=== PATIENT | female | born 1970 | race Caucasian/White ===

== ENCOUNTER 2018-04-21 14:19 | Outpatient (CLI) | payer BC ==
--- NOTE | 2018-04-21 19:40 | XRAY Report ---
Reason: FOOT PAIN,LEFT Procedure Date: 04/21/2018 Accession Number: [id number] / [id number] Procedure: XR - Foot 3 View LT CPT Code: FULL RESULT: EXAM: LEFT FOOT RADIOGRAPHY EXAM DATE: 04/21/2018 02:55 PM. CLINICAL HISTORY: FOOT PAIN,LEFT. COMPARISON: None. TECHNIQUE: 3 views. FINDINGS: Bones: Normal. No fractures or bone lesions. Joints: Normal. No subluxations. Soft Tissues: Normal. No soft tissue swelling. IMPRESSION: Normal foot radiography. RADIA
== END 2018-04-21 14:20 | disposition home or self-care (01) ==
LOC: DI 14:19
PROVIDERS: ATTEND Family Medicine
DX: M79.672 Pain in left foot (principal)

== ENCOUNTER 2018-07-29 13:47 | Outpatient (CLI) | payer BC | END 2018-07-29 13:48 | disposition home or self-care (01) | LOC: LAB.F 13:47 | PROVIDERS: ATTEND Registered Nurse | DX: E03.9 Hypothyroidism, unspecified (principal) | CPT/HCPCS: 36415; 84443 ==

== ENCOUNTER 2018-08-29 08:00 | Outpatient (CLI) | payer BC | END 2018-08-29 23:59 | disposition home or self-care (01) | LOC: LAB.R 08:00 | PROVIDERS: ATTEND Physician Assistant Medical | DX: R30.0 Dysuria (principal) | CPT/HCPCS: 87086 ==

== ENCOUNTER 2019-03-24 13:10 | Day surgery (SDC) | payer BC ==
[2019-03-24 13:38] LABS: BASOPHILS # (AUTO) 0.1 10^3/uL (0.0-0.1); BASOPHILS % (AUTO) 0.3 %; EOSINOPHILS % (AUTO) 0.1 %; HGB - HEMOGLOBIN 12.8 g/dL (12.0-16.0); LYMPHOCYTES # (AUTO) 0.7 10^3/uL (1.5-3.5); LYMPHOCYTES % (AUTO) 4.9 %; MEAN CORPUSCULAR HEMOGLOBIN 30.5 pg (27.0-31.0); MEAN CORPUSCULAR HGB CONC 33.4 g/dL (32.0-36.0); MEAN CORPUSCULAR VOLUME 91.4 fL (81.0-99.0); MEAN PLATELET VOLUME 10.3 fL (7.9-10.8); MONOCYTES % (AUTO) 7.2 %; NEUTROPHILS # (AUTO) 12.5 10^3/uL (1.5-6.6); NEUTROPHILS % (AUTO) 86.8 %; PLT - PLATELET COUNT 182 10^3/uL (130-450); RED BLOOD COUNT 4.19 10^6/uL (4.20-5.40); RED CELL DISTRIBUTION WIDTH 12.1 % (12.0-15.0); WHITE BLOOD COUNT 14.4 x10^3/uL (4.8-10.8)
[2019-03-24 13:51] LABS: ALBUMIN 3.8 g/dL (3.2-5.5); ALBUMIN/GLOBULIN RATIO 1.1 (1.0-2.2); BILIRUBIN,TOTAL 1.5 mg/dL (0.2-1.0); CALCIUM 8.6 mg/dL (8.5-10.3); CREATININE 0.5 mg/dL (0.4-1.0); TOTAL PROTEIN 7.4 g/dL (6.7-8.2)
[2019-03-24] MEDS ORDERED: ONDANSETRON 4 MG/2 ML VIAL IVP STA (13:58)
[2019-03-24] MEDS ORDERED: SODIUM CHLORIDE 0.9% 1,000 ML IV ONE (13:58)
--- NOTE | 2019-03-24 14:00 | ED Physician Documentation ---
History of Present Illness - Stated complaint Stated Complaint: ABD PX N/V - Chief complaint Chief Complaint: Abd Pain - History obtained from History obtained from: Patient, Family - History of Present Illness Timing: How many days ago (2) Pain level max: 8 Pain level now: 7 - Additonal information Additional information: 48-year-old female is 3 days status post a left elbow surgery for a tendon repair. She states that the pain began yesterday. She states she had not had a bowel movement since surgery, so she took MiraLAX and had a bowel movement. Pain is increasing today. She had been taking hydrocodone but stopped this last night. She states the pain is worse with palpation and movement. Better with rest. Has had nausea and vomiting today. Last meal was last night. Review of Systems Ten Systems: 10 systems reviewed and negative Constitutional: denies: Fever, Chills Ears: denies: Ear pain Nose: denies: Rhinorrhea / runny nose, Congestion Throat: denies: Sore throat Cardiac: denies: Chest pain / pressure Respiratory: denies: Cough GI: reports: Nausea, Vomiting. denies: Diarrhea Skin: denies: Rash Musculoskeletal: denies: Neck pain, Back pain Neurologic: denies: Headache PD PAST MEDICAL HISTORY - Past Medical History Past Medical History: No - Past Surgical History Past Surgical History: Yes Ortho: Other (Tendon repair left elbow) /[employer]: Endometrial ablation - Allergies Allergies/Adverse Reactions: Allergies Allergy/AdvReac Type Severity Reaction Status Date / Time No Known Drug Allergies Allergy Verified 03/24/19 13:13 - Living Situation Living Situation: reports: With family Living Arrangement: reports: At home - Family History Family history: reports: Non contributory - Immunizations Immunizations are current?: Yes PD ED PE NORMAL - Vitals Vital signs reviewed: Yes - General General: Alert and oriented X 3, No acute distress, Well developed/nourished - HEENT HEENT: PERRL, Moist mucous membranes - Neck Neck: Supple, no meningeal sign - Cardiac Cardiac: RRR, Strong equal pulses - Respiratory Respiratory: No respiratory distress, Clear bilaterally - Abdomen Abdomen: Soft, Non distended, Other (Tender to palpation right lower quadrant McBurney's point. Positive Rovsing. Negative psoas. Positive obturator) - Back Back: No CVA TTP, No spinal TTP - Derm Derm: Warm and dry - Extremities Extremities: No edema, Other (Left arm is in a sling and splint) - Neuro Neuro: Alert and oriented X 3 - Psych Psych: Normal mood, Normal affect Results - Vitals Vitals: Vital Signs - 24 hr 03/24/19 13:14 Temperature 37.0 C Heart Rate 89 Respiratory 16 Rate Blood Pressure 115/68 O2 Saturation 96 Oxygen O2 Source Room air - Labs Labs: Laboratory Tests 03/24/19 03/24/19 03/24/19 13:32 13:32 14:03 WBC 14.4 H RBC 4.19 L Hgb 12.8 Hct 38.3 MCV 91.4 MCH 30.5 MCHC 33.4 RDW 12.1 Plt Count 182 MPV 10.3 Neut # (Auto) 12.5 H Lymph # (Auto) 0.7 L [place] # (Auto) 1.0 Eos # (Auto) 0.0 Baso # (Auto) 0.1 Absolute Nucleated RBC 0.00 Nucleated RBC % 0.0 Sodium 137 Potassium 3.6 Chloride 102 Carbon Dioxide 23 Anion Gap 12.0 BUN 8 Creatinine 0.5 Estimated GFR (MDRD) 132 Glucose 118 H Calcium 8.6 Total Bilirubin 1.5 H AST 51 H ALT 62 H Alkaline Phosphatase 48 Total Protein 7.4 Albumin 3.8 Globulin 3.6 Albumin/Globulin Ratio 1.1 Lipase 24 Urine Color YELLOW Urine Clarity CLEAR Urine pH 6.0 Ur Specific [place] <=1.005 Urine Protein NEGATIVE Urine Glucose (UA) NEGATIVE Urine Ketones 15 H Urine Occult Blood NEGATIVE Urine Nitrite NEGATIVE Urine Bilirubin NEGATIVE Urine Urobilinogen 0.2 (NORMAL) Ur Leukocyte Esterase NEGATIVE Ur Microscopic Review NOT INDICATED Urine Culture Comments NOT INDICATED Urine HCG, Qual 03/24/19 14:03 WBC RBC Hgb Hct MCV MCH MCHC RDW Plt Count MPV Neut # (Auto) Lymph # (Auto) [place] # (Auto) Eos # (Auto) Baso # (Auto) Absolute Nucleated RBC Nucleated RBC % Sodium Potassium Chloride Carbon Dioxide Anion Gap BUN Creatinine Estimated GFR (MDRD) Glucose Calcium Total Bilirubin AST ALT Alkaline Phosphatase Total Protein Albumin Globulin Albumin/Globulin Ratio Lipase Urine Color Urine Clarity Urine pH Ur Specific [place] <=1.005 Urine Protein Urine Glucose (UA) Urine Ketones Urine Occult Blood Urine Nitrite Urine Bilirubin Urine Urobilinogen Ur Leukocyte Esterase Ur Microscopic Review Urine Culture Comments Urine HCG, Qual NEGATIVE - Rads (name of study) CT abd/pelvis Radiology: Prelim report reviewed, EMP read contemporaneously, See rad report (Acute appendicitis) PD MEDICAL DECISION MAKING - ED course Complexity details: reviewed results, re-evaluated patient, considered differential, d/w patient, d/w marketing regional consultant (Dr. Lala ([id number]) and will come evaluate the patient. ) ED course: Patient with an acute appendicitis. Started on Zosyn IV. Discussed the case with Dr. Lala, general surgery on-call who will come and evaluate the patient and take her to the operating room. This document was made in part using voice recognition software. While efforts are made to proofread this document, sound alike and grammatical errors may occur. Departure - Departure Disposition: ED Transfer to [facility] Clinical Impression: Appendicitis Qualifiers: Appendicitis type: acute appendicitis Acute appendicitis type: with localized peritonitis Appendicitis gangrene presence: without gangrene Appendicitis perforation presence: without perforation Appendicitis abscess presence: without abscess Qualified Code(s): K35.30 - Acute appendicitis with localized peritonitis, without perforation or gangrene Condition: Stable
[2019-03-24] MEDS ORDERED: IOVERSOL 320 100 ML VIAL IVP ONE ×2 (14:12→14:29)
[2019-03-24 14:21] LABS: BILIRUBIN,URINE NEGATIVE (NEGATIVE); GLUCOSE, URINE (UA) NEGATIVE (NEGATIVE); KETONES,URINE (UA) 15 mg/dL (NEGATIVE); LEUKOCYTE ESTERASE, URINE NEGATIVE (NEGATIVE); NITRITE,URINE NEGATIVE (NEGATIVE); OCCULT BLOOD,URINE NEGATIVE (NEGATIVE); PROTEIN,URINE NEGATIVE (NEGATIVE); UROBILINOGEN,URINE 0.2 (NORMAL) E.U./dL (NORMAL)
[2019-03-24 14:25] LABS: CLARITY,URINE CLEAR (CLEAR); HCG UR QUAL NEGATIVE
[2019-03-24] MEDS ORDERED: PIPERACILLIN/TAZOBACTAM 3.375 GM in SODIUM CHLORIDE 0.9% MINIBAG 100 ML IV STA (14:35)
[2019-03-24] MEDS ORDERED: LACTATED RINGERS 1,000 ML IV STA (14:41)
--- NOTE | 2019-03-24 14:47 | CT Report ---
Reason: RLQ abd pain Procedure Date: 03/24/2019 Accession Number: [id number] / [id number] Procedure: CT - Abdomen/Pelvis W CPT Code: FULL RESULT: EXAM: CT ABDOMEN AND PELVIS EXAM DATE: 03/24/2019 02:28 PM. CLINICAL HISTORY: Right lower quadrant abdominal pain for 2 days. Recent surgery to the left arm. Unable to move the arm. COMPARISONS: None. TECHNIQUE: Routine helical CT imaging was performed through the abdomen and pelvis. IV contrast: OPTI 320 100ML. Enteric contrast: No. Reconstructions: Coronal and sagittal. In accordance with CT protocol optimization, one or more of the following dose reduction techniques were utilized for this exam: automated exposure control, adjustment of mA and/or KV based on patient size, or use of iterative reconstructive technique. FINDINGS: Lung Bases: Subsegmental basilar atelectasis is noted bilaterally, minimal. Liver: Normal. No masses. Gallbladder/Bile Ducts: Unremarkable. Spleen: Normal. Pancreas: Normal. Adrenal Glands: Normal. Kidneys: Indeterminate 1.3 cm hypodense right renal lesion. No hydronephrosis. Peritoneal Cavity/Bowel: Inflammatory stranding is seen in the right lower quadrant centered about the dilated appendix which demonstrates wall thickening and a maximal caliber of 1.2 cm as well as a basal appendicolith. There is no gross free fluid aside from the mesenteric engorgement and phlegmonous changes. No discrete fluid collection to suggest formed abscess. No free air. No bowel obstruction. Pelvic Organs: A mild amount of reactive changes is seen in the right adnexal area. This is felt to be related to the nearby appendicitis. Vasculature: No aneurysms or other significant abnormality. Bones: No significant abnormality. Other: None. IMPRESSION: Acute appendicitis, with basal appendicolith. As yet uncomplicated. CRITICAL RESULT: The findings were discussed with Dr. Naranjo on 03/24/2019 at 2:35 PM. HECTORA
--- NOTE | 2019-03-24 14:57 | ANESTHESIA ---
Pre-Anesthesia VS, & Labs - Diagnosis acute appendicitis - Procedure lap appy Vital Signs: Temp Pulse Resp BP Pulse Ox 37.0 C 89 16 115/68 96 03/24/19 13:14 03/24/19 13:14 03/24/19 13:14 03/24/19 13:14 03/24/19 13:14 Height 5 ft 6 in Weight (kg) 79.379 kg Body Mass Index 28.2 - NPO >8 hours - Is Patient ?: No - Lab Results Current Lab Results: Laboratory Tests 03/24/19 13:32: Sodium 137, Potassium 3.6, Chloride 102, Carbon Dioxide 23, Anion Gap 12.0, BUN 8, Creatinine 0.5, Estimated GFR (MDRD) 132, Glucose 118 H, Calcium 8.6, Total Bilirubin 1.5 H, AST 51 H, ALT 62 H, Alkaline Phosphatase 48, Total Protein 7.4, Albumin 3.8, Globulin 3.6, Albumin/Globulin Ratio 1.1, Lipase 24 03/24/19 13:32: WBC 14.4 H, RBC 4.19 L, Hgb 12.8, Hct 38.3, MCV 91.4, MCH 30.5, MCHC 33.4, RDW 12.1, Plt Count 182, MPV 10.3, Neut # (Auto) 12.5 H, Lymph # (Auto) 0.7 L, [place] # (Auto) 1.0, Eos # (Auto) 0.0, Baso # (Auto) 0.1, Absolute Nucleated RBC 0.00, Nucleated RBC % 0.0 Fish Bones: 03/24/19 13:32 03/24/19 13:32 Home Medications and Allergies Active Medications Piperacillin Sod/Tazobactam (Sod 3.375 gm/ Sodium Chloride) 100 mls @ 200 mls/hr IV ONCE STA Stop: 03/24/19 15:04 Last Admin: 03/24/19 14:46 Dose: 200 mls/hr Lactated Ringer's (Lr) 1,000 mls @ 150 mls/hr IV .[id number] STA Stop: 03/24/19 21:20 Last Admin: 03/24/19 14:46 Dose: 150 mls/hr Armor thyroid, restasis Allergies/Adverse Reactions: Allergies Allergy/AdvReac Type Severity Reaction Status Date / Time No Known Drug Allergies Allergy Verified 03/24/19 13:13 Anes History & Medical History - Anesthetic History Anesthesia Complications: reports: No previous complications - Medical History Cardiovascular: reports: None Pulmonary: reports: None Gastrointestinal: reports: None Urinary: reports: None Neuro: reports: None Musculoskeletal: reports: None Endocrine/Autoimmune: reports: HyPOthyroidism Blood Disorders: reports: None Skin: reports: None Smoking Status: Never smoker Psychosocial: reports: Alcohol (2x per week) - Surgical History Eyes Ears Nose Throat (EENT): Other Gynecologic: Endometrial ablation Orthopedic: Other (Tendon repair left elbow) Exam General: Alert, Oriented x3, Cooperative, No acute distress Dental: WNL Mouth Openin Fingerbreadth Neck Mobility: Normal Mallampati classification: II Thyromental Distance: greater than 6 cm Respiratory: Lungs clear, Normal breath sounds, No respiratory distress, No accessory muscle use Cardiovascular: Regular rate, Normal S1, Normal S2, No murmurs Mental/Cognitive Status: Alert/Oriented X3, Normal for patient Plan Anesthesia Type: General Consent for Procedure(s) Verified and Reviewed: Yes Code Status: Attempt Resuscitation ASA classification: 1-Healthy patient Is this case an emergency?: Yes
[2019-03-24] MEDS ORDERED: LIDOCAINE 1%-EPI 1:100000 20 ML MDV ONE (15:26)
[2019-03-24] MEDS ORDERED: BUPIVACAINE 0.5% PF 30 ML VIAL ONE (15:26)
--- NOTE | 2019-03-24 16:29 | HISTORY & PHYSICAL EXAMINATION ---
HPI - Admitted From Admitted from: ED - History Obtained From History obtained from: Patient, Family Exam limitations: No limitations - History of Present Illness Severity at the worst: reports: Moderate Pain Quality: reports: Sharp, Aching, Throbbing Context-Pain started w/: reports: Rest Timing: reports: Gradual onset Duration: reports: Days: (3) Improved with: reports: Nothing Worsened by: reports: Exertion, Movement, Palpation Associated symptoms: reports: General Weakness HPI Comment/Other: 48-year-old female is 3 days status post a left elbow surgery for a tendon repair. She states that the pain began yesterday. She states she had not had a bowel movement since surgery, so she took MiraLAX and had a bowel movement. Pain is increasing today. She had been taking hydrocodone but stopped this last night. She states the pain is worse with palpation and movement. Better with rest. Has had nausea and vomiting today. Last meal was last night. PMH/PSH - Past Medical History Cardiovascular: positive: None Respiratory: positive: None Neuro: positive: None Endocrine/Autoimmune: positive: HyPOthyroidism GI: positive: None : positive: None Musculoskeletal: positive: None Derm: positive: None - Past Surgical History Ortho: positive: Other (Tendon repair left elbow) /[employer]AB: positive: Endometrial ablation HEENT: positive: Other Social & Family Hx - Social History Does the pt smoke?: No Smoking Status: Never smoker Does the pt have substance abuse?: No Meds/Allgy - Allergies Allergies/Adverse Reactions: Allergies Allergy/AdvReac Type Severity Reaction Status Date / Time No Known Drug Allergies Allergy Verified 03/24/19 13:13 Review of Systems - Constitutional Constitutional: reports: Fatigue, Malaise, Weakness, Poor appetite. denies: Fever, Chills - Eyes Eyes: denies: Pain, Irritation, Amaurosis, Blurred vision - Ears, Nose & Throat Ears, Nose & Throat: denies: Ear pain, Tinnitus, Vertigo - Cardiovascular Cariovascular: denies: Irregular heart rate, Palpitations, Chest pain, Edema - Respiratory Respiratory: denies: Cough, Sputum production, Orthopnea, SOB at rest - Gastrointestinal Gastrointestinal: reports: Abdominal pain, Constipation, Nausea, Bloating, Poor appetite - Genitourinary Genitourinary: denies: Dysuria, Frequency, Urgency - Musculoskeletal Musculoskeletal: denies: Muscle pain, Back pain - Integumentary Integumentary: denies: Rash - Neurological Neurological: denies: Focal weakness - Hematologic/Lymphatic Hematologic/Lymphatic: denies: Anemia, Bruising Exam - Vital Signs Reviewed Vital Signs: Yes Vital Signs: Vital Signs x48h Temp Pulse Resp BP Pulse Ox 03/24/19 13:14 37.0 C 89 16 115/68 96 - Physical Exam General Appearance: positive: Alert, Mild distress Eyes Bilateral: positive: Normal inspection, PERRL, EOMI, No lid inflammation, Conjunctivae nml ENT: positive: ENT inspection nml, Pharynx nml, No signs of dehydration. negative: Oral lesions Neck: positive: Nml inspection, Thyroid nml, No JVD, Trachea midline, Thyromega ly. negative: Lymphadenopathy (R), Lymphadenopathy (L) Respiratory: positive: Chest non-tender, No respiratory distress, Breath sounds nml. negative: Wheezes Cardiovascular: positive: Regular rate & rhythm, No murmur, No gallop Peripheral Pulses: positive: 1+ Abdomen: positive: Tenderness, Abnml bowel sounds (Tender to palpation in the right lower quadrant. Voluntary guarding and rebound tenderness. Hypoactive bowel sounds.) Skin: positive: Color nml, No rash Extremities: positive: Other (Splint and sling in place on the right arm) Neurologic/Psychiatric: positive: Oriented x3, CN's nml (2-12) Results - Lab Results Fish Bones: 03/24/19 13:32 03/24/19 13:32 Other Lab Results: Lab Results x24hrs 03/24/19 03/24/19 03/24/19 Range/Units 14:03 14:03 13:32 WBC (4.8-10.8) x10^3/uL RBC (4.20-5.40) 10^6/uL Hgb (12.0-16.0) g/dL Hct (37.0-47.0) % MCV (81.0-99.0) fL MCH (27.0-31.0) pg MCHC (32.0-36.0) g/dL RDW (12.0-15.0) % Plt Count (130-450) 10^3/uL MPV (7.9-10.8) fL Neut # (Auto) (1.5-6.6) 10^3/uL Lymph # (Auto) (1.5-3.5) 10^3/uL [place] # (Auto) (0.0-1.0) 10^3/uL Eos # (Auto) (0.0-0.7) 10^3/uL Baso # (Auto) (0.0-0.1) 10^3/uL Absolute Nucleated RBC x10^3/uL Nucleated RBC % /100WBC Sodium 137 (135-145) mmol/L Potassium 3.6 (3.5-5.0) mmol/L Chloride 102 (101-111) mmol/L Carbon Dioxide 23 (21-32) mmol/L Anion Gap 12.0 (6-13) BUN 8 (6-20) mg/dL Creatinine 0.5 (0.4-1.0) mg/dL Estimated GFR (MDRD) 132 (>89) Glucose 118 H (70-100) mg/dL Calcium 8.6 (8.5-10.3) mg/dL Total Bilirubin 1.5 H (0.2-1.0) mg/dL AST 51 H (10-42) IU/L ALT 62 H (10-60) IU/L Alkaline Phosphatase 48 (42-121) IU/L Total Protein 7.4 (6.7-8.2) g/dL Albumin 3.8 (3.2-5.5) g/dL Globulin 3.6 (2.1-4.2) g/dL Albumin/Globulin Ratio 1.1 (1.0-2.2) Lipase 24 (22-51) U/L Urine Color YELLOW Urine Clarity CLEAR (CLEAR) Urine pH 6.0 (5.0-7.5) PH Ur Specific [place] <=1.005 <=1.005 (1.002-1.030) Urine Protein NEGATIVE (NEGATIVE) mg/dL Urine Glucose (UA) NEGATIVE (NEGATIVE) mg/dL Urine Ketones 15 H (NEGATIVE) mg/dL Urine Occult Blood NEGATIVE (NEGATIVE) Urine Nitrite NEGATIVE (NEGATIVE) Urine Bilirubin NEGATIVE (NEGATIVE) Urine Urobilinogen 0.2 (NORMAL) (NORMAL) E.U./dL Ur Leukocyte Esterase NEGATIVE (NEGATIVE) Ur Microscopic Review NOT INDICATED Urine Culture Comments NOT INDICATED Urine HCG, Qual NEGATIVE 03/24/19 Range/Units 13:32 WBC 14.4 H (4.8-10.8) x10^3/uL RBC 4.19 L (4.20-5.40) 10^6/uL Hgb 12.8 (12.0-16.0) g/dL Hct 38.3 (37.0-47.0) % MCV 91.4 (81.0-99.0) fL MCH 30.5 (27.0-31.0) pg MCHC 33.4 (32.0-36.0) g/dL RDW 12.1 (12.0-15.0) % Plt Count 182 (130-450) 10^3/uL MPV 10.3 (7.9-10.8) fL Neut # (Auto) 12.5 H (1.5-6.6) 10^3/uL Lymph # (Auto) 0.7 L (1.5-3.5) 10^3/uL [place] # (Auto) 1.0 (0.0-1.0) 10^3/uL Eos # (Auto) 0.0 (0.0-0.7) 10^3/uL Baso # (Auto) 0.1 (0.0-0.1) 10^3/uL Absolute Nucleated RBC 0.00 x10^3/uL Nucleated RBC % 0.0 /100WBC Sodium (135-145) mmol/L Potassium (3.5-5.0) mmol/L Chloride (101-111) mmol/L Carbon Dioxide (21-32) mmol/L Anion Gap (6-13) BUN (6-20) mg/dL Creatinine (0.4-1.0) mg/dL Estimated GFR (MDRD) (>89) Glucose (70-100) mg/dL Calcium (8.5-10.3) mg/dL Total Bilirubin (0.2-1.0) mg/dL AST (10-42) IU/L ALT (10-60) IU/L Alkaline Phosphatase (42-121) IU/L Total Protein (6.7-8.2) g/dL Albumin (3.2-5.5) g/dL Globulin (2.1-4.2) g/dL Albumin/Globulin Ratio (1.0-2.2) Lipase (22-51) U/L Urine Color Urine Clarity (CLEAR) Urine pH (5.0-7.5) PH Ur Specific [place] (1.002-1.030) Urine Protein (NEGATIVE) mg/dL Urine Glucose (UA) (NEGATIVE) mg/dL Urine Ketones (NEGATIVE) mg/dL Urine Occult Blood (NEGATIVE) Urine Nitrite (NEGATIVE) Urine Bilirubin (NEGATIVE) Urine Urobilinogen (NORMAL) E.U./dL Ur Leukocyte Esterase (NEGATIVE) Ur Microscopic Review Urine Culture Comments Urine HCG, Qual - Diagnostic Imaging Results Diagnostic Imaging Results: positive: Final report reviewed Diagnostic Imaging Results Comments: Acute appendicitis without evidence of rupture Impression/Plan - Problem List Problem List: Acute appendicitis in the setting of a generally healthy 48-year-old lady. We have discussed the risks and benefits of laparoscopy with appendectomy and the patient is expressed a desire to complete the procedure today.
[2019-03-24] MEDS ORDERED: LIDOCAINE 1%-EPI 1:100000 30 ML MDV SUBQ ONE (16:56)
[2019-03-24] MEDS ORDERED: BUPIVACAINE 0.5% PF 30 ML VIAL SUBQ ONE ×2 (16:56)
[2019-03-24] MEDS ORDERED: LACTATED RINGERS 1,000 ML IV ONE ×2 (16:56→16:57)
[2019-03-24] MEDS ORDERED: SUGAMMADEX 200 MG/2 ML VIAL IVP ONE (17:23)
[2019-03-24] MEDS ORDERED: ONDANSETRON 4 MG/2 ML VIAL IVP PRN (17:40)
[2019-03-24] MEDS ORDERED: HYDROmorphone 0.5 MG/0.5 ML SYRINGE IVP PRN (17:40)
[2019-03-24] MEDS ORDERED: oxyCODONE 5 MG TABLET PO PRN (17:40)
[2019-03-24] MEDS ORDERED: MIDAZOLAM 2 MG/2 ML VIAL IVP ONE (17:41)
[2019-03-24] MEDS ORDERED: PROPOFOL 200 MG/20 ML VIAL IVP ONE (17:41)
[2019-03-24] MEDS ORDERED: fentaNYL 100 MCG/2 ML VIAL IVP ONE (17:41)
[2019-03-24] MEDS ORDERED: KETOROLAC 30 MG/ML VIAL IVP ONE (17:41)
[2019-03-24] MEDS ORDERED: DEXAMETHASONE 4 MG/ML VIAL IVP ONE (17:41)
--- NOTE | 2019-03-24 17:55 | OPERATIVE REPORT ---
Operative Report - General Procedure Date: 03/24/19 Planned Procedure: Laparoscopy with appendectomy Pre-Op Diagnosis: Acute appendicitis Procedure Performed: Laparoscopy with appendectomy Post Op Diagnosis: Acute appendicitis - Procedure Note Primary Surgeon: Spike Anesthesia Provider: JEMIMA Gomez Anesthesia Technique: General ET tube, Local Pathology: Appendix to pathology in formalin IV Fluids (mL): 500 Estimated Blood Loss (mL): 5 Findings: Acutely inflamed and necrotic appendix Complications: None apparent - Other Other Information/Narrative: After obtaining informed consent, the patient is brought to the operating room and placed in the supine position on the operating table. Following successful induction of general endotracheal anesthesia, appropriate padding of all bony prominences, and placement of appropriate monitors, the abdomen was prepped and draped in the standard surgical fashion. A timeout was held per scope protocol. All elements of the surgical safety checklist were followed before, during, and after the procedure. We began the procedure by infiltrating a mixture of local anesthetics just inferior to the umbilicus and carried an incision down through the skin and subcutaneous tissue. 2-0 Vicryl retention sutures were placed on either side of the midline and the abdomen was entered under direct vision using a 15 blade scalpel. A 10 mm blunt Aguilar balloon trocar was placed in the abdominal cavity and it was insufflated to 15 mmHg pressure. The patient was placed in Trendelenburg position with the left side rotated toward the floor. The camera was placed in the abdominal cavity and we immediately visualized a right lower quadrant phlegmon. A second trocar, 5 mm, was placed midway between the umbilicus and the pubis after a mixture of local anesthetics again. A third trocar, also 5 mm, was placed in the right upper quadrant again after infiltration with local anesthetic. The camera was placed in the inferior most trocar site and the appendix was grasped and elevated. It was carefully liberated from surrounding structures using blunt dissection. We were careful not to rupture the appendix. There was no gross evidence of purulence outside of the appendix.The junction of the appendix and cecum was carefully identified and delineated. A OSMEL stapling device was passed across the base of the appendix at this point. The appendix was then liberated completely, placed in a laparoscopic Endo Catch device, and removed by the umbilical port.The camera was replaced in the abdomen and the abdomen was irrigated with 1 L of warm saline solution and aspirated free of all fluid and particulate matter.The abdomen was checked once again for hemostasis. The air was allowed to escape from the abdom en by opening the trochars. The trochars were removed under direct vision. The umbilical incision was closed with interrupted 0 Vicryl suture and Monocryl stitches were placed in the skin. All sponge, needle, and instrument counts were correct at the conclusion of the case. The patient was allowed to awaken from anesthesia without difficulty and taken to the post anesthesia care unit in good condition.
[2019-03-24 20:19] VITALS: BP 92/65
== END 2019-03-24 20:05 | disposition home or self-care (01) ==
LOC: ED 13:10 → SDS 17:40 → ICU 17:43 → SDS 20:05
PROVIDERS: ATTEND Surgery
PROC: 0DTJ4ZZ Resection of Appendix, Percutaneous Endoscopic Approach (ICD-10-PCS; principal; 2019-03-24 16:15)
DX: K35.891 Other acute appendicitis without perforation, with gangrene (principal); E03.9 Hypothyroidism, unspecified
CPT/HCPCS: 36415; 44970; 74177; 80053; 81003; 81025; 83690; 85025; 96365; 96375; 99284; 99285; J7120; Q9967; 81001; 87086

== ENCOUNTER 2019-08-18 08:00 | Outpatient (CLI) | payer BC | END 2019-08-18 23:59 | disposition home or self-care (01) | LOC: LAB.R 08:00 | PROVIDERS: ATTEND Family Medicine | DX: J11.1 Influenza due to unidentified influenza virus with other respiratory manifestations (principal) | CPT/HCPCS: 81599 ==

== ENCOUNTER 2020-07-19 08:00 | Outpatient (CLI) | payer BC | END 2020-07-19 23:59 | disposition home or self-care (01) | LOC: LAB.R 08:00 | PROVIDERS: ATTEND Physician Assistant Medical | DX: R50.9 Fever, unspecified (principal); J02.9 Acute pharyngitis, unspecified; Z20.822 Contact with and (suspected) exposure to COVID-19 ==

== ENCOUNTER 2021-04-21 08:00 | Outpatient (CLI) | payer BC | END 2021-04-21 23:59 | disposition home or self-care (01) | LOC: LAB.S 08:00 | PROVIDERS: ATTEND Emergency Medicine | DX: J02.9 Acute pharyngitis, unspecified (principal); Z20.822 Contact with and (suspected) exposure to COVID-19 | CPT/HCPCS: 87070 ==

== ENCOUNTER 2021-05-07 16:21 | Outpatient (CLI) | payer BC, OTHER ==
[2021-05-09 10:06] LABS: HEPATITIS C ANTIBODY NON-REACTIVE (NON-REACTIVE)
[2021-05-09 16:30] LABS: HIV AG/AB 4TH GEN NON-REACTIVE (NON-REACTIVE)
== END 2021-05-07 16:22 | disposition home or self-care (01) ==
LOC: LAB.S 16:21
PROVIDERS: ATTEND Registered Nurse
DX: Z77.21 Contact with and (suspected) exposure to potentially hazardous body fluids (principal); W46.0XXA Contact with hypodermic needle, initial encounter
CPT/HCPCS: 86803; 87389

== ENCOUNTER 2022-06-12 17:55 | Emergency (ER) | payer BC, OTHER ==
[2022-06-12 18:07] VITALS: BP 123/70
[2022-06-12] MEDS ORDERED: AMOX/CLAV 875 MG/125 MG TABLET PO STA (19:39)
--- NOTE | 2022-06-12 19:41 | ED Physician Documentation ---
PD HPI WOUND RECHECK - Stated complaint Stated Complaint: DOG BITE - Chief complaint Chief Complaint: Wound - Histroy obtained from History obtained from: Patient - Additional information Additional information: Right-handed woman who is up-to-date on tetanus was taking care of her friend's dog and the dog got a hold of some plastic and was chewing on cheek. She tried to get it out of his mouth and it bit her about the right thumb. No other injuries. 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 HEENT: Other - Present Medications Home Medications: Ambulatory Orders Medication Instructions Recorded Confirmed Amox/Clav 875/125 [Augmentin] 1 each PO Q12H #10 tablet 03/24/19 Ondansetron Odt [Zofran] 4 mg TL Q6H PRN #10 tablet 03/24/19 oxyCODONE/ACET 5/325 [Percocet 5 1 each PO Q6H PRN #20 tablet 03/24/19 mg/325 mg] Amox/Clav 875/125 [Augmentin] 1 each PO Q12H #10 tablet 06/12/22 - Allergies Allergies/Adverse Reactions: Allergies Allergy/AdvReac Type Severity Reaction Status Date / Time No Known Drug Allergies Allergy Verified 06/12/22 18:07 - Social History Does the pt smoke?: No Smoking Status: Never smoker Does the pt have substance abuse?: No - Immunizations Immunizations are current?: Yes PD ED PE NORMAL - Vitals Vital signs reviewed: Yes - General General: Alert and oriented X 3, No acute distress - Extremities Extremities: Other (There is a very shallow laceration on the palmar side of the right thumb at the level of the interphalangeal joint without distal neurovascular compromise and some dorsal puncture wounds.) - Neuro Neuro: Alert and oriented X 3, Normal speech Results - Vitals Vitals: Vital Signs - 24 hr 06/12/22 18:03 Temperature 36.5 C Heart Rate 74 Respiratory 14 Rate Blood Pressure 123/70 O2 Saturation 99 Oxygen O2 Source Room air PD Medical Decision Making - ED course ED course: Wound was irrigated and dressed with Xeroform, gauze and a wrap. It does not ne ed suturing. She is placed on Augmentin. She is up-to-date on tetanus. Departure - Departure Disposition: 01 Home, Self Care Clinical Impression: Dog bite of right hand Qualifiers: Encounter type: initial encounter Qualified Code(s): S61.451A - Open bite of right hand, initial encounter; W54.0XXA - Bitten by dog, initial encounter Condition: Good Record reviewed to determine appropriate education?: Yes Instructions: ED Bite Dog Prescriptions: Amox/Clav 875/125 [Augmentin] 1 each PO Q12H #10 tablet Comments: Come back for any signs of infection which would include: Redness, swelling, drainage, increased pain, or fevers. You can wash it soap and water. Keep it covered and moist with bacitracin ointment which is available over the counter; avoid neosporin.
== END 2022-06-12 19:48 | disposition home or self-care (01) ==
LOC: ED 17:55
DX: S61.011A Laceration without foreign body of right thumb without damage to nail, initial encounter (principal); W54.0XXA Bitten by dog, initial encounter; Y93.K9 Activity, other involving animal care
CPT/HCPCS: 99282; 99283; A9270

== ENCOUNTER 2022-08-26 10:10 | Outpatient (CLI) | payer BC | END 2022-08-26 23:59 | disposition critical access hospital (66) | LOC: EMS 10:10 | DX: M54.50 Low back pain, unspecified (principal) | CPT/HCPCS: A0425; A0429 ==

== ENCOUNTER 2022-08-26 10:39 | Emergency (ER) | payer BC ==
[2022-08-26] MEDS ORDERED: DEXAMETHASONE 10 MG/ML VIAL IM STA (10:57)
[2022-08-26] MEDS ORDERED: HYDROmorphone 1 MG/ML CARPUJECT IM STA (10:57)
--- NOTE | 2022-08-26 11:59 | XRAY Report ---
PROCEDURE: Lumbar Spine 2 View INDICATIONS: midline back pain, injury TECHNIQUE: 2 views of the lumbar spine were acquired. COMPARISON: None. FINDINGS: Bones: 5 ifa-lke-kcoabnt vertebrae are present. There is trace retrolisthesis of L2 on L3, L3 on L4 , L5 on S1. Moderate to severe disc and foraminal narrowing are noted at L5-S1, moderate foraminal na rrowing L4-5. No vertebral body compression fractures. No suspicious bony lesions. Soft tissues: Overlying bowel gas pattern is normal. No suspicious soft tissue calcifications. IMPRESSION: Early degenerative changes most severe at L5-S1. Reviewed by: Juliana Quijano MD on 08/26/2022 11:58 AM PDT Approved by: Juliana Quijano MD on 08/26/2022 11:58 AM PDT Station ID: [id number]
--- NOTE | 2022-08-26 12:03 | ED Physician Documentation ---
History of Present Illness - Stated complaint Stated Complaint: BACK PAIN - Chief complaint Chief Complaint: Back Pain - History obtained from History obtained from: Patient - Additonal information Additional information: The patient is brought to emergency department via EMS for chief complaint of low back pain. She states she had squatted down to look at a pair shoes at the store and was just squatting in her normal way. She was not holding anything heavy. She states that she stood up she felt a sudden sharp pain in her midline lower lumbar area. She states it developed into a pain that goes in a band across her low back. She states that any movement at all, but especially turning, causes a sharp pain in the midline. She denies any direct trauma. She works for the [employer] and has done a lot of heavy lifting over her career. She states she has had some episodes of back pain before but never as bad as this. She denies any numbness or tingling going down her legs. Lifting her legs does trigger pain in her low back. She denies any loss of bowel or bladder control. No weakness. No other complaints at this time. 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 HEENT: Other - Present Medications Home Medications: Ambulatory Orders Medication Instructions Recorded Confirmed Ondansetron Odt [Zofran] 4 mg TL Q6H PRN #10 tablet 03/24/19 oxyCODONE/ACET 5/325 [Percocet 5 1 each PO Q6H PRN #20 tablet 03/24/19 mg/325 mg] Levothyroxine [Synthroid] 125 mcg PO QDAC 06/12/22 06/12/22 HYDROcod/ACETAM 5/325 [[place] 5/325] 1 - 2 tablet PO Q4HR PRN #20 tablet 08/26/22 predniSONE [Deltasone] 60 mg PO DAILY 5 Days #15 tablet 08/26/22 - Allergies Allergies/Adverse Reactions: Allergies Allergy/AdvReac Type Severity Reaction Status Date / Time No Known Drug Allergies Allergy Verified 08/26/22 10:56 - Social History Does the pt smoke?: No Smoking Status: Never smoker Does the pt drink ETOH?: Yes Does the pt have substance abuse?: No - Immunizations Immunizations are current?: Yes PD ED PE NORMAL - Vitals Vital signs reviewed: Yes - General General: Alert and oriented X 3, No acute distress, Well developed/nourished - HEENT HEENT: Atraumatic, PERRL, EOMI, Moist mucous membranes - Neck Neck: Supple, no meningeal sign - Respiratory Respiratory: No respiratory distress - Abdomen Abdomen: Soft, Non tender, Non distended - Back Back: No spinal TTP, Other (There is minimal tenderness of the soft tissues surrounding the lumbar spine and there is minimal tenderness of the spine itself. The patient is noted to report pain in her spine when she turns over in bed or shifts position for the exam.) - Derm Derm: Normal color, Warm and dry, No rash - Extremities Extremities: No deformity, No tenderness to palpate, Normal ROM s pain, No edema, Other (Full passive range of motion) - Neuro Neuro: Alert and oriented X 3 - Psych Psych: Normal mood, Normal affect Results - Vitals Vitals: Oxygen O2 Source Room air - Rads (name of study) Lumbar spine x-ray series Relevant Findings:: Final report received, See rad report (Foraminal narrowing L4 L5-S1. Some loss of disc height at L5-S1.) PD Medical Decision Making - ED course Complexity details: reviewed results, re-evaluated patient, considered differential, d/w patient ED course: The patient was treated symptomatically in the emergency department with Decadron and Dilaudid. She had already tried taking ibuprofen and Flexeril at home. She is sent for an x-ray series of the lumbar spine, which shows some chronic changes. On re-eval, pt was found to be feeling better. We have discussed symptomatic management at home, follow-up, and the usual indications for return. Departure - Departure Disposition: 01 Home, Self Care Clinical Impression: Acute myofascial strain of lumbar region Qualifiers: Encounter type: initial encounter Qualified Code(s): S39.012A - Strain of muscle, fascia and tendon of lower back, initial encounter Condition: Stable Instructions: ED Sprain Strain Lumbar Prescriptions: HYDROcod/ACETAM 5/325 [[place] 5/325] 1 - 2 tablet PO Q4HR PRN #20 tablet PRN Reason: Pain predniSONE [Deltasone] 60 mg PO DAILY 5 Days #15 tablet Comments: Your x-ray series showed some early degenerative changes in your lumbar spine, most severe at the L5-S1 area. You also have some foraminal narrowing, which can could be contributing to some ear issues as well. At this point in time, however, there is no evidence of a serious injury or emergent complications or cause of your back pain. Please take the medications prescribed, as needed. You may also take the muscle relaxer and ibuprofen with these medications if you wish. Please follow-up with your primary care physician. Your prescriptions have been electronically transmitted to the [facility] pharmacy in [place]. Forms: Activity restrictions Discharge Date/Time: 08/26/22 13:51
[2022-08-26 13:33] VITALS: BP 123/82
== END 2022-08-26 13:51 | disposition home or self-care (01) ==
LOC: EDUNIT# → ED 10:39
DX: S39.012A Strain of muscle, fascia and tendon of lower back, initial encounter (principal); X50.1XXA Overexertion from prolonged static or awkward postures, initial encounter; Y92.512 Supermarket, store or market as the place of occurrence of the external cause; E03.9 Hypothyroidism, unspecified; Z79.899 Other long term (current) drug therapy
CPT/HCPCS: 96374; 96375; 99283